=== PATIENT | female | born 2000 | race Caucasian/White ===

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

== ENCOUNTER 2020-04-15 22:59 | Emergency (ER) | payer OTHER ==
[~2020-04-15] VITALS: Ht 162.6 cm; Wt 63.6 kg
[~2020-04-15 22:59] MED LIST: OMNICEF 300MG300 MG PO; TESSALON P100 MG/CAP PO
[2020-04-15 23:03] VITALS: TEMP 98.3
[2020-04-16 00:38] VITALS: BP 136/83; PULSE 95
== END 2020-04-16 00:40 | disposition home or self-care (01) ==
LOC: COL.ER 22:59
DX: F10.129 Alcohol abuse with intoxication, unspecified (principal); R40.20 Unspecified coma